=== PATIENT | male | born 1990 | race Two or more races ===

== ENCOUNTER 2020-01-27 12:38 | Emergency (ER) | payer OTHER ==
[~2020-01-27] VITALS: Ht 160 cm; Wt 61.0 kg
[2020-01-27 12:52] VITALS: BP 127/69
[2020-01-27 13:13] LABS: COVID AG,FIA SOURCE NASOPHARYNGEAL
[2020-01-27] MEDS ORDERED: IBUPROFEN 100 MG/5 ML SUSPENSION UDCUP PO ONE (13:15)
[2020-01-27 13:29] LABS: RAPID GROUP A STREP NEGATIVE (NEGATIVE)
== END 2020-01-27 14:13 | disposition home or self-care (01) ==
LOC: EMS 12:43
DX: J02.9 Acute pharyngitis, unspecified (principal); R05 Cough; Z20.828 Contact with and (suspected) exposure to other viral communicable diseases
CPT/HCPCS: 87426; 87430